=== PATIENT | male | born 1995 | race Caucasian/White ===

== ENCOUNTER → 2016-04-30 | Outpatient (CLI) | payer MEDICAID ==
[2016-04-30 12:17] LABS: CHLORIDE,CL 106 mmol/L (98-110); SODIUM,NA 138 mmol/L (136-146)
== END ==
LOC: MW.CHNEURO 11:20
PROVIDERS: ATTEND Psychiatry & Neurology Neuromuscular Medicine
DX: G40.109 Localization-related (focal) (partial) symptomatic epilepsy and epileptic syndromes with simple partial seizures, not intractable, without status epilepticus (principal)
CPT/HCPCS: 36415; 80053; 80185; 85025; 93005

== ENCOUNTER → 2016-05-12 | Outpatient (CLI) | payer MEDICAID ==
--- NOTE | 2016-05-13 10:04 | ECHO ---
EXAM DATE: 05/12/16 PATIENT'S AGE: 20 The echocardiogram report can be seen in the patient's EMR (Electronic Medical Record) in the Reports section. Electronically signed by: Ava Linda MD Signature Date/Time: 05/12/[address] [place] [id number] -- JASON Qiu [phone] - FAX: [phone] [facility] CENTERHubert
== END ==
LOC: MW.US 13:05
PROVIDERS: ATTEND Internal Medicine
DX: R01.1 Cardiac murmur, unspecified (principal); I34.0 Nonrheumatic mitral (valve) insufficiency
CPT/HCPCS: 93306

== ENCOUNTER → 2016-05-19 | Outpatient (CLI) | payer MEDICAID | LOC: MW.CHNEURO 13:36 | PROVIDERS: ATTEND Psychiatry & Neurology Neuromuscular Medicine | DX: G40.109 Localization-related (focal) (partial) symptomatic epilepsy and epileptic syndromes with simple partial seizures, not intractable, without status epilepticus (principal) | CPT/HCPCS: 36415; 80185 ==

== ENCOUNTER → 2016-06-04 | Outpatient (CLI) | payer MEDICAID ==
[2016-06-04 12:43] LABS: CHLORIDE,CL 106 mmol/L (98-110); SODIUM,NA 140 mmol/L (136-146)
== END ==
LOC: MW.CHNEURO 11:52
PROVIDERS: ATTEND Psychiatry & Neurology Neuromuscular Medicine
DX: G40.109 Localization-related (focal) (partial) symptomatic epilepsy and epileptic syndromes with simple partial seizures, not intractable, without status epilepticus (principal)
CPT/HCPCS: 36415; 80053; 80185; 85025

== ENCOUNTER → 2016-06-25 | Outpatient (CLI) | payer MEDICAID | LOC: MW.CHNEURO 08:36 | PROVIDERS: ATTEND Psychiatry & Neurology Neuromuscular Medicine | DX: R40.20 Unspecified coma (principal) | CPT/HCPCS: 93005 ==